=== PATIENT | female | born 1945 | race Caucasian/White ===

== ENCOUNTER → 2016-10-14 | Outpatient (CLI) | payer MEDICARE ==
[~2016-10-14] MED LIST: CYMBALTA 30 MG30 MG PO; LORTAB 10-3251 EACH PO; PLEGRIDY P125 MCG/0. SQ; ROPINIROLE HCL2 MG PO
== END ==
LOC: KOH-I 10-11 09:00
DX: M24.474 Recurrent dislocation, right foot (principal); Z98.890 Other specified postprocedural states; M25.871 Other specified joint disorders, right ankle and foot
CPT/HCPCS: 73700

== ENCOUNTER 2020-11-24 17:25 | Emergency (ER) | payer MEDICARE ==
[~2020-11-24 17:25] MED LIST changes: +AMPYRA10 MG PO; +BAYER CHEWABLE81 MG PO; +DEMADEX 20 MG T20 MG PO; +DULOXETINE HCL30 MG PO; +GABAPENTIN600 MG PO; +IBUPROFEN800 MG PO; +IRON325 M1 PO; +LIDOCAINE PAIN1 EACH TP; +LISINOPRIL20 MG PO; +MEDROL4 MG PO; +NAMENDA5 MG PO; +PAIN PUMP INJ; +PLEGRIDY125 MCG/0. SQ; +SPIRIVA18 MCG INH; +THERAGRAN M TAB1 EA PO; +TOLTERODINE TART1 MG PO; +TYLENOL 500 MG500 MG PO; +VITAMIN D3 PO; +VOLTAREN EC 7575 MG PO; +[UNRECOGNIZED DRUG - OTHER] INJ
== END 2020-11-24 21:00 | disposition home or self-care (01) ==
LOC: ER1 17:25
DX: G89.29 Other chronic pain (principal); M54.5 Low back pain; M25.561 Pain in right knee; M25.562 Pain in left knee; J44.9 Chronic obstructive pulmonary disease, unspecified; K21.9 Gastro-esophageal reflux disease without esophagitis; I10 Essential (primary) hypertension; F17.210 Nicotine dependence, cigarettes, uncomplicated; Z79.01 Long term (current) use of anticoagulants; Z79.899 Other long term (current) drug therapy
CPT/HCPCS: 96372; 99283; J1885

== ENCOUNTER → 2021-01-28 | Day surgery (SDC) | payer MEDICARE, OTHER ==
[~2021-01-28] MED LIST changes: +VAZALORE81 MG PO
== END | disposition home or self-care (01) ==
LOC: OR 06:41
DX: K22.2 Esophageal obstruction (principal); Q39.4 Esophageal web; M19.90 Unspecified osteoarthritis, unspecified site; G35 Multiple sclerosis; K21.9 Gastro-esophageal reflux disease without esophagitis; G25.81 Restless legs syndrome; E66.3 Overweight; M81.0 Age-related osteoporosis without current pathological fracture; I10 Essential (primary) hypertension; M41.9 Scoliosis, unspecified; Z88.8 Allergy status to other drugs, medicaments and biological substances; Z68.27 Body mass index [BMI] 27.0-27.9, adult; Z87.891 Personal history of nicotine dependence; Z79.82 Long term (current) use of aspirin; Z79.899 Other long term (current) drug therapy
CPT/HCPCS: J2704; J7040